=== PATIENT | female | born 1970 | race Hispanic/Latino ===

== ENCOUNTER 2021-06-13 09:23 | Emergency (ER) | payer SELFPAY ==
--- NOTE | 2021-06-13 10:17 | Emergency Department Report ---
- General Chief complaint: Skin/Abscess/Foreign Body Stated complaint: VAGINAL BUMP Time Seen by Provider: 06/13/21 09:38 Source: patient Mode of arrival: Ambulatory Limitations: No Limitations - History of Present Illness Initial comments: 51-year-old white female with a past medical history of hypertension and CAD status post stents presents to the emergency department for evaluation of abscess to the perineal area. She states that she noticed it 2 to 3 days ago and since then it has been getting larger with increasing pain. She denies fever or drainage. She states that she applied a warm compress to the area prior to arrival. MD complaint: abscess/boil -: Gradual, days(s) (2-3) Location: genitals Severity: moderate Severity scale (0 -10): 5 Quality: aching Consistency: constant Improves with: other (Warm compress) Associated symptoms: denies other symptoms Treatments Prior to Arrival: other (Warm compress) Abscess Boil HPI - HPI Chief Complaint: Skin/Abscess/Foreign Body Stated Complaint: VAGINAL BUMP Time Seen by Provider: 06/13/21 09:38 Duration: 3 Days Location: Perianal Severity: Moderate History: Yes Pain, No Fever, No Purulent Drainage, No Numbness, No Insect Bite ED Review of Systems ROS: Stated complaint: VAGINAL BUMP Other details as noted in HPI Comment: All other systems reviewed and negative Constitutional: denies: chills, fever Eyes: denies: eye pain ENT: denies: ear pain Respiratory: denies: cough, shortness of breath Cardiovascular: denies: chest pain, palpitations, dyspnea on exertion, orthopnea, edema Endocrine: no symptoms reported Gastrointestinal: denies: abdominal pain, nausea, vomiting Genitourinary: denies: urgency, dysuria, frequency, hematuria Musculoskeletal: denies: back pain Skin: denies: rash, lesions Neurological: denies: headache, weakness, numbness Psychiatric: denies: anxiety Hematological/Lymphatic: denies: easy bleeding, easy bruising ED Physical Exam - General Limitations: No Limitations General appearance: alert, in no apparent distress - Head Head exam: Present: atraumatic, normocephalic - Eye Eye exam: Present: normal appearance. Absent: conjunctival injection - Neck Neck exam: Present: normal inspection. Absent: tenderness, lymphadenopathy - Respiratory Respiratory exam: Absent: respiratory distress - Cardiovascular Cardiovascular Exam: Present: regular rate - GI/Abdominal GI/Abdominal exam: Absent: distended - External exam: Present: other (Noted to have minimal swelling, erythema, and tenderness to right perineal area. Area much smaller per patient than it was before she came in, and pain has improved significantly.) - Extremities Exam Extremities exam: Present: normal inspection - Back Exam Back exam: Present: normal inspection. Absent: CVA tenderness (R), CVA tenderness (L) - Neurological Exam Neurological exam: Present: alert, oriented X3 - Psychiatric Psychiatric exam: Present: normal affect, normal mood - Skin Skin exam: Present: warm, dry, intact, normal color ED Medical Decision Making - Medical Decision Making 51-year-old white female with a past medical history of hypertension and CAD status post stents presents to the emergency department for evaluation of abscess to the perineal area. She states that she noticed it 2 to 3 days ago and since then it has been getting larger with increasing pain. She denies fever or drainage. She states that she applied a warm compress to the area prior to arrival. Abscessed area much improved from this a.m. Patient noted that she had drainage in underwear now that she did not have prior to arrival. Area with only minimal edema noted, no drainage noted when pressed, area not fluctuant. No need for incision and drainage. Patient will be discharged home and advised to continue using moist heat to the area until total resolution. She was advised follow-up with primary care provider or back in the emergency department if she develops fever or worsening pain and swelling. She verbalized understanding of and agreement with plan of care. Critical care attestation.: If time is entered above; I have spent that time in minutes in the direct care of this critically ill patient, excluding procedure time. ED Disposition Clinical Impression: Perineal abscess, superficial Disposition: 01 HOME / SELF CARE / HOMELESS Is pt being admited?: No Does the pt Need Aspirin: No Condition: Stable Instructions: Skin Abscess, [id number]-oy-[id number] Additional Instructions: Use Tylenol or Motrin as needed for pain. Continue to use warm compress. Follow-up with primary care provider if worsening symptoms. Referrals: DAGMAR PEREZ MD [Referring] - 3-5 Days Time of Disposition: 10:17
== END 2021-06-13 10:52 | disposition home or self-care (01) ==
LOC: ED 09:23
DX: L02.215 Cutaneous abscess of perineum (principal)
CPT/HCPCS: 99282

== ENCOUNTER 2021-11-23 21:19 | Emergency (ER) | payer SELFPAY ==
[2021-11-23] MEDS ORDERED: ASPIRIN 325 MG TAB PO ONE (21:26)
[2021-11-23 21:34] VITALS: BP 196/101
--- NOTE | 2021-11-23 22:32 | XRay Report ---
CHEST 2 VIEWS INDICATION / CLINICAL INFORMATION: CHEST PAIN. COMPARISON: None available. FINDINGS: SUPPORT DEVICES: None. HEART / MEDIASTINUM: No significant abnormality. LUNGS / PLEURA: No significant pulmonary or pleural abnormality. No pneumothorax. ADDITIONAL FINDINGS: No significant additional findings. IMPRESSION: 1. No acute findings. Signer Name: Kaleb Andres MD Signed: 11/23/2021 10:28 PM Workstation Name: [id number]
[2021-11-23 23:27] LABS: Alanine Aminotransferase 88 units/L (7-56); Albumin 3.3 g/dL (3.9-5); BUN/Creatinine Ratio 11; Blood Urea Nitrogen 9 mg/dL (7-17); Hemolysis Index 6
[2021-11-23 23:36] LABS: Basophils # (Auto) 0.1 K/mm3 (0.0-0.1); Eosinophils # (Auto) 0.1 K/mm3 (0.0-0.4); Hematocrit 38.4 % (30.3-42.9); Hemoglobin 13.3 gm/dl (10.1-14.3); Lymphocytes # (Auto) 1.7 K/mm3 (1.2-5.4); Lymphocytes % (Auto) 27.6 % (13.4-35.0); Mean Corpuscular HGB Conc 35 % (30-34); Mean Corpuscular Volume 93 fl (79-97); Monocytes # (Auto) 0.5 K/mm3 (0.0-0.8); Monocytes % (Auto) 7.9 % (0.0-7.3); Platelet Count 129 K/mm3 (140-440); Red Blood Count 4.14 M/mm3 (3.65-5.03); Red Cell Distribution Width 15.1 % (13.2-15.2)
--- NOTE | 2021-11-24 10:42 | Electrocardiograph Report ---
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
== END 2021-11-23 22:40 | disposition left against medical advice (07) ==
LOC: ED 21:19
DX: R20.0 Anesthesia of skin (principal); R07.89 Other chest pain; Z53.21 Procedure and treatment not carried out due to patient leaving prior to being seen by health care provider
CPT/HCPCS: 36415; 71046; 80053; 84484; 85025; 93005

== ENCOUNTER 2021-11-26 18:45 | Emergency (ER) | payer SELFPAY ==
[2021-11-27 00:21] VITALS: BP 206/109
--- NOTE | 2021-11-27 22:39 | Electrocardiograph Report ---
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
== END 2021-11-27 03:00 | disposition left against medical advice (07) ==
LOC: ED 18:45
DX: R55 Syncope and collapse (principal); Z53.21 Procedure and treatment not carried out due to patient leaving prior to being seen by health care provider
CPT/HCPCS: 93005